=== PATIENT | male | born 1940 | race Caucasian/White ===

== ENCOUNTER → 2016-05-31 | Day surgery (SDC) | payer MEDICARE, BC ==
[~2016-05-31] MED LIST: ALLOPURINOL300 MG PO; ALPRAZOLAM0.25 MG PO; AMBIEN10 MG DOB; AMBIEN10 MG PO; AMITRIPTYLINE H25 MG PO; ASPIRIN EC81 M1 PO; ASPIRIN81 MG PO; ATIVAN PO; B-121000 MC1 PO; CARDURA PO; CELEXA20 MG PO; CIPRO PO; CITALOPRAM HBR40 MG PO; DITROPAN X15 MG/BOTT PO; FIBERCON625 MG PO; FINASTERIDE5 MG PO; FISH OIL 1,0001 CAP PO; FLAGYL PO; FLEXERIL PO; FLOMAX0.4 M1; FLOMAX0.4 M1 PO; FOLIC ACID1 MG PO; HYDROCODON-ACE1 EAC5 PO; HYDROCODONE PO; HYDROCODONE-APA1 T54 PO; LEVAQUIN PO; LISINOPRIL10 MG PO; LISINOPRIL20 MG PO; MELOXICAM15 MG PO; MOBIC PO; MYRBETRIQ50 MG PO; NEXIUM PO; NEXIUM40 MG/PACK PO; OXAZEPAM PO; OXAZEPAM10 MG DOB; OXYBUTYNIN15 MG/BOTT PO; PAMELOR25 M1 PO; PRAVACHOL80 MG PO; PROSCAR5 MG PO; TALWIN NX TABLE1 TAB PO; TIZANIDINE HCL4 M1 PO; VERAPAMIL ER240 MG PO; ZESTORETIC 20/11 TAB PO
--- NOTE | ~2016-05-31 | OR ---
Unit #: [id number] #: [id number] Patient: YOEL VALADEZ [id number] [address] [place], [place] [address] [id number] MR#: [id number] NAME: YOEL VALADEZ ROOM: Date of Procedure: 05/31/2016 Admission Date: 05/31/2016 Surgeon: Roque Arnold Jr., M.D. : 1940 Attending Physician: Roque Arnold Jr., M.D. Primary Care Physician: Viraj Bradshaw D.O. OPERATIVE REPORT INDICATIONS FOR PROCEDURE The patient is a 76-year-old white male, who recently presented to the office complaining of a small cystic like lesion of the left postauricular in the right. He was brought in this time at his request for removal of these that have been chronically inflamed in the past with some drainage. The one on the right now completely resolved and he still had one on the left, which is approximately a 1 to 1.5 cm in diameter. He is brought in this time for excision of the one on the left postauricular area. He understands the procedure including the risks, including that of recurrence, infection, and poor healing and consents. 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 ANESTHESIA 1% Xylocaine with epinephrine locally. PROCEDURE PERFORMED Excision of chronic inflamed cyst of the left postauricular area. DESCRIPTION OF PROCEDURE The patient was positioned in supine position with his head turned to the right and prepped and draped in routine fashion for excision of the cyst as described above. The area was locally blocked with 1% Xylocaine with epinephrine. An elliptical incision was made around the cystic lesion completely with a #15 blade scalpel and down to the deeper subcutaneous tissue. The lesion was completely removed in its entirety and sent to pathology. After hemostasis achieved with Bovie cautery, the deeper tissue was approximated with interrupted 3-0 Vicryl sutures. Skin edges approximated with continuous 5-0 nylon suture. Ointment and sterile dressing were applied externally. Estimated blood loss minimal. No drains used. No complications. The patient discharged in satisfactory condition. Dictated by... Roque Arnold Jr., M.D. Unit #: [id number] #: [id number] Patient: YOEL VALADEZ/elbert TD: 05/31/2016 23:02 JOB #: [id number] OPERATIVE REPORT Page 1 of 1 X Roque Arnold MD X PROCEDURE OPERATIVE NOTE
== END | disposition home or self-care (01) ==
LOC: CSUR 08:16
DX: L72.0 Epidermal cyst (principal); K21.9 Gastro-esophageal reflux disease without esophagitis; N40.0 Benign prostatic hyperplasia without lower urinary tract symptoms; M19.90 Unspecified osteoarthritis, unspecified site; F17.210 Nicotine dependence, cigarettes, uncomplicated; Z85.46 Personal history of malignant neoplasm of prostate; Z88.5 Allergy status to narcotic agent; Z88.8 Allergy status to other drugs, medicaments and biological substances; Z91.040 Latex allergy status; Z98.890 Other specified postprocedural states
CPT/HCPCS: 88304